=== PATIENT | male | born 1985 | race Caucasian/White ===

== ENCOUNTER 2018-03-03 17:26 | Emergency (ER) | payer OTHER ==
--- NOTE | 2018-03-03 17:36 | PDOC ---
Rapid Medical Evaluation Time Seen by Provider: 03/03/18 17:33 Medical Evaluation: Allergies Allergy/AdvReac Type Severity Reaction Status Date / Time Penicillins Allergy Rash Verified 06/25/11 14:31 03/03/18 17:33 I have performed a brief in-person evaluation of the patient The patient presents with a chief complaint of: worsening right ear infection. Sent from Urgent Care to r/o mastoiditis and receive iv antibiotics. Complaining of pain in right ear and decrease hearing. Pertinent physical exam findings are: NAD HEENT: right ear with tenderness and swelling behind right ear, yellow drainage noted at ear canal opening even and unlabored breathing I have ordered the following: iv acess, analgesia The patient will proceed to the ED for further evaluation.
[2018-03-03 17:37] VITALS: BMI 37.0
[2018-03-03] MEDS ORDERED: ACETAMINOPHEN 500 MG TABLET (FP) PO ONE (17:37)
--- NOTE | 2018-03-03 17:59 | PDOC ---
*Physical Exam - Vital Signs Last Vital Signs Temp Pulse Resp BP Pulse Ox 99.1 F 90 18 161/82 98 03/03/18 17:35 03/03/18 17:35 03/03/18 17:35 03/03/18 17:35 03/03/18 17:35 ED Treatment Course - LABORATORY CBC & Chemistry Diagram: 03/03/18 18:17 03/03/18 18:17 Medical Decision Making - Medical Decision Making 03/03/18 17:59 Pt seen by Midlevel Provider under my direct supervision Pt interviewed and examined Ancillary studies pending Pt signed out to Dr Stearns I agree with plan as outlined by Midlevel Provider *DC/Admit/Observation/Transfer Diagnosis at time of Disposition: Otitis externa, Otitis media, Mastoid pain - Discharge Dispostion Disposition: HOME Condition at time of disposition: Stable - Referrals Referrals: Noe Chavez [Staff Physician] - Justin Rodriguez [Primary Care Provider] - - Patient Instructions Printed Discharge Instructions: Otitis Externa, Middle Ear Infection, Mastoiditis Additional Instructions: You are to call Dr. Chavez's office at 8:30am tomorrow morning @ [phone] [place] [address] Advise the office staff that you were in the ER [facility] and Dr. Chavez was contacted and wishes to see you in his office tomorrow. Be aware that he is only in the office tomorrow at 9am - 11am tomorrow Advise DR. Chavez that you were given Clindamycin 900mg IV/Solumedrol 125mg iv/ Tylenol and Motrin macy He will write you for any further antibiotics required Return to the Er for severe/persistent/worsening symptoms - Post Discharge Activity
[2018-03-03] MEDS ORDERED: KETOROLAC TROMETHAMINE 30 MG/1 ML VIAL IVPUSH ONE (18:09)
[2018-03-03] MEDS ORDERED: ACETAMINOPHEN 325 MG TABLET (FP) ONE (18:10)
[2018-03-03] MEDS ORDERED: KETOROLAC TROMETHAMINE 30 MG/1 ML VIAL ONE ×2 (18:12→18:16)
--- NOTE | 2018-03-03 18:12 | PDOC ---
History of Present Illness - General Chief Complaint: Pain, Acute Stated Complaint: PCP SENT/EAR PROBLEM Time Seen by Provider: 03/03/18 17:33 History Source: Patient Exam Limitations: No Limitations - History of Present Illness Initial Comments: 03/03/18 18:12 CHIEF COMPLAINT: Ear pain HISTORY OF PRESENT ILLNESS: This is an otherwise healthy 32-year-old male who first developed right ear pain on 02/28. On 03/01, he was seen in urgent care and given azithromycin. His pain has worsened and now involved his jaw and the area behind his ear. He reports decreased hearing. He was seen again in urgent care today and referred to the ED out of concern for mastoiditis. He thinks that he has had low-grade fevers. He denies trismus, nausea vomiting, or any other symptoms. Vital signs on arrival are notable for low-grade temp 99.1 and hypertension 161/ 82. REVIEW OF SYSTEMS: GENERAL/CONSTITUTIONAL: Low grade fever. No weakness. No weight change. HEAD, EYES, EARS, NOSE AND THROAT: See HPI. CARDIOVASCULAR: No chest pain or palpitations. RESPIRATORY: No cough, wheezing, or shortness of breath. GASTROINTESTINAL: No nausea, vomiting, diarrhea or constipation. GENITOURINARY: No dysuria, frequency, or change in urination. MUSCULOSKELETAL: No joint or muscle swelling or pain. No neck or back pain. SKIN: No rash or easy bruising. NEUROLOGIC: No headache, vertigo, loss of consciousness, or loss of sensation. PSYCHIATRIC: No depression or anxiety. ENDOCRINE: No increased thirst. No abnormal weight change. HEMATOLOGIC/LYMPHATIC: No anemia, easy bleeding, or history of blood clots. ALLERGIC/IMMUNOLOGIC: No hives or skin allergy. No latex allergy. PHYSICAL EXAM: GENERAL: The patient is awake, alert, and fully oriented, in no acute distress. HEAD: Normal with no signs of trauma. ENT: Right auditory canal erythematous, TM obscured by effusion. +Tenderness and mild erythema over mastoid process. Pupils equal, round and reactive to light, extraocular movements intact, sclera anicteric, conjunctiva clear. Neck supple. LUNGS: Clear to auscultation bilaterally. Normal excursion. No respiratory distress or use of accessory muscles. CV: RRR, S1/S2, no MRG. Cap refill < 2 sec. ABDOMEN: Soft, non-distended, non-tender. EXTREMITIES: Normal range of motion, no edema. NEUROLOGICAL: Normal speech, normal gait. CN II-XII grossly intact. PSYCH: Normal mood, normal affect. SKIN: Warm, dry, normal turgor, no rashes or lesions noted. Past History - Past Medical History Allergies/Adverse Reactions: Allergies Allergy/AdvReac Type Severity Reaction Status Date / Time Penicillins Allergy Rash Verified 03/03/18 17:34 Home Medications: Ambulatory Orders NK [No Known Home Medication] 03/03/18 Cardiac Disorders: Yes (HEART MURMUR) COPD: No - Immunization History Immunization Up to Date: No - Suicide/Smoking/Psychosocial Hx Smoking Status: Yes Smoking History: Current every day smoker Number of Cigarettes Smoked Daily: 2 Cigars Per Day: 0 Information on smoking cessation initiated: No *Physical Exam - Vital Signs Last Vital Signs Temp Pulse Resp BP Pulse Ox 99.1 F 90 18 161/82 98 03/03/18 17:35 03/03/18 17:35 03/03/18 17:35 03/03/18 17:35 03/03/18 17:35 ED Treatment Course - LABORATORY CBC & Chemistry Diagram: 03/03/18 18:17 03/03/18 18:17 - RADIOLOGY Radiology Studies Ordered: Category Date Time Status FACIAL BONES CT W/O CONTRAST [CT] Stat CT Scan 03/03/18 18:06 Ordered - Medications Given in the ED: ED Medications Discontinued Medications Generic Name Dose Route Start Last Admin Trade Name Freq PRN Reason Stop Dose Admin Acetaminophen 1,000 mg 03/03/18 17:37 03/03/18 18:08 Tylenol - PO 03/03/18 17:38 1,000 mg ONCE ONE Administration Medical Decision Making - Medical Decision Making 03/03/18 18:20 A/P: 32-year-old male with otitis worsening with azithromycin. Concern for possible mastoiditis. -Labs including CBC, CMP, once of blood cultures -CT temporal bone -Given acetaminophen 1000 mg po in triage, will also give Toradol 30 mg IV push for pain -Reassess 03/03/18 18:48 WBC 12.9. *DC/Admit/Observation/Transfer - Referrals Referrals: Justin Rodriguez [Primary Care Provider] - - Patient Instructions - Post Discharge Activity
[2018-03-03 18:28] LABS: EOS % 0.5 % (0-4.5); HEMATOCRIT 44.5 % (35.4-49); MCH 29.4 pg (25.7-33.7); MCHC 33.8 g/dl (32.0-35.9); MONO % 7.4 % (3.8-10.2); NEUT % 76.1 % (42.8-82.8); PLATELET COUNT 221 K/MM3 (134-434); RBC 5.11 M/mm3 (4.00-5.60); RDW 13.3 % (11.9-15.9); WHITE BLOOD COUNT 12.9 K/mm3 (4.0-10.0)
[2018-03-03 19:03] LABS: ALBUMIN 4.2 g/dl (3.4-5.0); ALK PHOS 76 U/L (45-117); ANION GAP 10 MMOL/L (8-16); BILIRUBIN,TOTAL 0.7 mg/dL (0.2-1); BLOOD UREA NITROGEN 5 mg/dL (7-18); CALCIUM 9.6 mg/dL (8.5-10.1); CHLORIDE 102 mmol/L (98-107); CO2 28 mmol/L (21-32); CREATININE 0.7 mg/dL (0.55-1.3); GLUCOSE,RANDOM 105 mg/dL (74-106); POTASSIUM 3.9 mmol/L (3.5-5.1); SGOT/AST 18 U/L (15-37); SGPT/ALT 43 U/L (13-61); SODIUM 139 mmol/L (136-145); TOT PROT 7.6 g/dl (6.4-8.2)
--- NOTE | 2018-03-03 20:29 | PDOC ---
*Physical Exam - Vital Signs Last Vital Signs Temp Pulse Resp BP Pulse Ox 99.1 F 90 18 161/82 98 03/03/18 17:35 03/03/18 17:35 03/03/18 17:35 03/03/18 17:35 03/03/18 17:35 - Physical Exam Comments: 03/03/18 21:28 GENERAL: Well developed, well nourished. Awake and alert. No acute distress. HEENT: + Right canal erythematous, TM + effusion. +Tenderness + erythema over mastoid process. Normocephalic, atraumatic. PERRLA, EOMI. No conjunctival pallor. Sclera are non- icteric. Moist mucous membranes. Oropharynx is clear. NECK: Supple. Full ROM. No JVD. Carotid pulses 2+ and symmetric, without bruits. No thyromegaly. No lymphadenopathy. CARDIOVASCULAR: Regular rate and rhythm. No murmurs, rubs, or gallops. Distal pulses are 2+ and symmetric. PULMONARY: No evidence of respiratory distress. Lungs clear to auscultation bilaterally. No wheezing, rales or rhonchi. ABDOMINAL: Soft. Non-tender. Non-distended. No rebound or guarding. No organomegaly. Normoactive bowel sounds. MUSCULOSKELETAL Normal range of motion at all joints. No bony deformities or tenderness. No CVA tenderness. EXTREMITIES: No cyanosis. No clubbing. No edema. No calf tenderness. SKIN: Warm and dry. Normal capillary refill. No rashes. No jaundice. ED Treatment Course - LABORATORY CBC & Chemistry Diagram: 03/03/18 18:17 03/03/18 18:17 - ADDITIONAL ORDERS Additional order review: Laboratory Results 03/03/18 18:17 Sodium 139 Potassium 3.9 Chloride 102 Carbon Dioxide 28 Anion Gap 10 BUN 5 L Creatinine 0.7 Creat Clearance w eGFR > 60 Random Glucose 105 Calcium 9.6 Total Bilirubin 0.7 AST 18 ALT 43 Alkaline Phosphatase 76 Total Protein 7.6 Albumin 4.2 03/03/18 18:17 RBC 5.11 MCV 87.0 MCHC 33.8 RDW 13.3 MPV 9.0 Neutrophils % 76.1 Lymphocytes % 15.0 D Monocytes % 7.4 Eosinophils % 0.5 Basophils % 1.0 - Medications Given in the ED: ED Medications Discontinued Medications Generic Name Dose Route Start Last Admin Trade Name Freq PRN Reason Stop Dose Admin Acetaminophen 1,000 mg 03/03/18 17:37 03/03/18 18:08 Tylenol - PO 03/03/18 17:38 1,000 mg ONCE ONE Administration Ketorolac Tromethamine 30 mg 03/03/18 18:09 03/03/18 18:15 Toradol Injection - IVPUSH 03/03/18 18:10 30 mg ONCE ONE Administration Progress Note - Progress Note Progress Note: 2027hrs: Called Dr. Garcia/ENT wheel and pinion inspector....Dr. Chavez wheel and pinion inspector 2106hrs; 2nd call 2009hrs: Spoke to Dr. Chavez/ENT wheel and pinion inspector. Advise antibiotics, steroids and will see the patient in his office at 0900 hrs. tomorrow into [place]. Case was discussed in depth with the patient. Patient has been advised he will get 1 dose of clindamycin since he is ALLERGIC to penicillin and cannot take Rocephin. He will get 1 dose of Solu-Medrol and will follow up with ENT. Patient is comfortable in holding 6/eating a sandwich without any difficulties. *DC/Admit/Observation/Transfer Diagnosis at time of Disposition: Otitis externa Qualifiers: Otitis externa type: diffuse Chronicity: acute Laterality: right Qualified Code (s): H60.311 - Diffuse otitis externa, right ear Otitis media Qualifiers: Otitis media type: unspecified Chronicity: acute Qualified Code(s): H66.90 - Otitis media, unspecified, unspecified ear Mastoid pain Qualifiers: Laterality: right Qualified Code(s): H92.01 - Otalgia, right ear - Discharge Dispostion Disposition: HOME Condition at time of disposition: Stable Decision to Admit order: No - Referrals Referrals: Justin Rodriguez [Primary Care Provider] - Noe Chavez [Staff Physician] - - Patient Instructions Printed Discharge Instructions: Otitis Externa, Middle Ear Infection, Mastoiditis Additional Instructions: You are to call Dr. Chavez's office at 8:30am tomorrow morning @ [phone] [place] [address] Advise the office staff that you were in the [facility] and Dr. Chavez was contacted and wishes to see you in his office tomorrow. Be aware that he is only in the office tomorrow at 9am - 11am tomorrow Advise DR. Chavez that you were given Clindamycin 900mg IV/Solumedrol 125mg iv/ Tylenol and Jorge cavazos He will write you for any further antibiotics required Return to the Er for severe/persistent/worsening symptoms - Post Discharge Activity
[2018-03-03 21:00] VITALS: BP 139/88; PULSE 88; TEMP 98.2
[2018-03-03] MEDS ORDERED: CLINDAMYCIN 900 MG PREMIX IVPB 900 MG/50 ML BAG IVPB ONE ×2 (21:25→21:47)
[2018-03-03] MEDS ORDERED: methylPREDNISolone NA SUCC 125 MG/2 ML VIAL IVPB ONE (21:26)
[2018-03-03] MEDS ORDERED: methylPREDNISolone NA SUCC 125 MG/2 ML VIAL ONE (21:47)
== END 2018-03-03 22:27 | disposition home or self-care (01) ==
LOC: JER 17:26
PROC: 3E03329 Introduction of Other Anti-infective into Peripheral Vein, Percutaneous Approach (ICD-10-PCS; principal; 2018-03-03)
PROC: 3E0333Z Introduction of Anti-inflammatory into Peripheral Vein, Percutaneous Approach (ICD-10-PCS; 2018-03-03)
PROC: 3E033GC Introduction of Other Therapeutic Substance into Peripheral Vein, Percutaneous Approach (ICD-10-PCS; 2018-03-03)
DX: H60.311 Diffuse otitis externa, right ear (principal); H66.90 Otitis media, unspecified, unspecified ear; H92.01 Otalgia, right ear; F17.210 Nicotine dependence, cigarettes, uncomplicated; R01.1 Cardiac murmur, unspecified
CPT/HCPCS: 36415; 70480-TC; 80053; 85025; 87040; 99282-25